=== PATIENT | female | born 1995 | race African-American/Black ===

== ENCOUNTER 2016-10-21 11:54 | Emergency (ER) | payer BC, MEDICAID ==
[~2016-10-21 11:54] MED LIST: CALNTAB; MACR100C2 PO; METR500T10 PO
--- NOTE | 2016-10-21 13:50 | PD ---
HPI Chief Complaint Pelvic Pain Date Seen: Oct 21, 2016 Travel History International Travel<30 Days: No Contact w/Intl Traveler<30Days: No Known Affected Area: No History of Present Illness HPI Ms. Piper is a 21 y/o at 38/1 presenting to the OB ED for pelvic pain. She states that around 1100 yesterday she began to have 10/10 pelvic pain. She describes the pain as stabbing going from her vagina through her hip crease. She endorses good movement without any loss of fluid, discharge, or bleeding. She has been seen by Adarsh Heydi Medina. She states that her thus far has been uncomplicated. She states that her most recent US was done in office earlier this week. She has no other complaints and denies any fevers, chill, headaches, SOB, chest pain, NVD, or calf tenderness. History Past Medical History Narrative Medical No PMHx reported Obstetric History Obstetric History Past Surgical History Narrative Surgical None reported Family History Narrative Family History None reported Social History Alcohol Use: No Tobacco Use: No Substance Abuse: No Allergies-Medications (Allergen,Severity, Reaction): Coded Allergies: No Known Allergies (Verified , 10/21/16) Home Meds Active Scripts Metronidazole 500 Mg [id number] Mg PO BID #14 TAB Ref 0 Prov:Lev Holbrook MD R2 09/28/16 Nitrofurantoin Monohydrate Macrocrystals (Macrobid)100 Mg [id number] Mg PO BID #10 CAP Ref 0 Prov:Lev Holbrook MD R2 09/28/16 Reported Medications Vitamin (Calna)1 Tab Tab 09/28/16 Review of Systems General / Constitutional: No: Fever Eyes: No: Blurred Vision HENT: No: Headaches Cardiovascular: No: Chest Pain or Discomfort, Palpitations Respiratory: No: Short of Breath Gastrointestinal: No: Nausea, Vomiting, Diarrhea Genitourinary: No: Dysuria, Discharge, Vaginal Bleeding Musculoskeletal: Pain, No: Weakness Skin: No Rash Neurologic: No: Weakness Psychiatric: No: Substance Abuse Endocrine: No: Polydipsia Hematologic/Lymphatic: No Lymph Node Enlargement Physical Exam Narrative GENERAL: Well-nourished, well-developed patient. SKIN: Warm and dry. HEAD: Normocephalic and atraumatic. EYES: No scleral icterus. No injection or drainage. ENT: No nasal drainage noted. Mucous membranes pink. Airway patent. NECK: Supple, trachea midline. No JVD. CARDIOVASCULAR: Regular rate and rhythm without murmurs, gallops, or rubs. RESPIRATORY: Breath sounds equal bilaterally. No accessory muscle use. BREASTS: Bilateral exam showed no masses , no retractions, no nipple discharge. ABDOMEN/GI: Abdomen soft, non-tender, bowel sounds present, no rebound, no guarding Gravid to 38 weeks size GENITOURINARY: External Genitalia: intact and normal in appearance Cervix: Midposition Dilatation: Closed Effacement: 0% Station: -3 Membranes: Intact FHT's: Category: 1 Baseline: 135 Reactive: + Variability: Moderate Decels: None EXTREMITIES: No cyanosis. Mild ankle edema. Pain ranging from her vagina through her hip crease to her iliac crests, positional. Mild pain to palpation. BACK: Nontender without obvious deformity. No CVA tenderness. NEUROLOGICAL: Awake and alert. Motor and sensory grossly within normal limits. Five out of 5 muscle strength in all muscle groups. Normal speech. Data Data Vital Signs Reviewed: Yes [facility] Medical Record Reviewed: Yes Plan Ms. Piper is a 21 y/o at 38/1 presenting to the OB ED for pelvic pain likely due to round ligament pain 1. IUP at 38 weeks -Continue routine antepartum care -Category 1 tracing, reassuring -Encourage oral hydration -Educated patient on kick counts 2. Round ligament pain -Due to history and exam pain is likely due to round ligament stress -Educated patient on pain control with Tylenol and encouraged oral hydration Discharge: OB team plans to discharge patient home. Patient educated on labor and when to return to hospital. All questions were answered and patient verbalized understanding. DW: Dr. Munoz Diagnosis Diagnosis: Primary Impression: 38 weeks gestation of Additional Impression: Round ligament pain Disposition: DISCHARGE HOME Condition: Stable Damian Ugalde MD R1 Oct 21, 2016 13:50
== END 2016-10-21 14:03 | disposition home or self-care (01) ==
LOC: HOBED 11:54
DX: O26.893 Other specified pregnancy related conditions, third trimester (principal); R10.2 Pelvic and perineal pain; Z3A.38 38 weeks gestation of pregnancy
CPT/HCPCS: 59025